=== PATIENT | female | born 1975 | race Caucasian/White ===

== ENCOUNTER 2016-08-01 00:17 | Emergency (ER) | payer OTHER ==
[2016-08-01 00:27] VITALS: RESP 20; TEMP 96.9
[2016-08-01] MEDS ORDERED: DIPHENHYDRAMINE 50 MG/ML SOL IV ONE (00:33)
[2016-08-01] MEDS ORDERED: KETOROLAC TROMETHAMINE 30 MG/ML SOL IV ONE (00:33)
[2016-08-01] MEDS ORDERED: PROCHLORPERAZINE EDISYLATE 5 MG/ML SOL IV ONE (00:33)
[2016-08-01] MEDS ORDERED: KETOROLAC TROMETHAMINE 30 MG/ML SOL ONE (00:43)
[2016-08-01] MEDS ORDERED: PROCHLORPERAZINE EDISYLATE 5 MG/ML SOL ONE (00:44)
[2016-08-01] MEDS ORDERED: DIPHENHYDRAMINE 50 MG/ML SOL ONE (00:44)
[2016-08-01] MEDS: SODIUM CHLORIDE 0.9% FLUSH 10 ML SOL IV PRN ×2 (00:50→00:58)
[2016-08-01] MEDS ORDERED: SODIUM CHLORIDE 0.9% 500 ML 500 ML IV ONE (01:14)
[2016-08-01 01:23] VITALS: O2SAT 97
[2016-08-01 02:03] VITALS: BP 121/70; PULSE 74
== END 2016-08-01 02:24 | disposition home or self-care (01) | DRG 103 ==
LOC: ED 00:17
DX: G43.909 Migraine, unspecified, not intractable, without status migrainosus (principal)
CPT/HCPCS: 99285; J0780; J1200; J1885

== ENCOUNTER 2017-07-06 08:10 | Day surgery (SDC) | payer OTHER ==
[2017-07-06] MEDS ORDERED: PROPOFOL 500 MG/50 ML EMU IV ONE (08:11)
[2017-07-06] MEDS ORDERED: LIDOCAINE HCL 1% MPF SOL ONE (08:11)
[2017-07-06] MEDS ORDERED: ONDANSETRON HCL 4 MG/2 ML SOL ONE (10:03)
[2017-07-06 11:09] VITALS: BP 127/87; PULSE 76; RESP 18; TEMP 97.4; O2SAT 97
== END 2017-07-06 11:37 | disposition home or self-care (01) | DRG 392 ==
LOC: SURG 08:10
PROVIDERS: ATTEND Surgery
DX: R10.32 Left lower quadrant pain (principal); K22.10 Ulcer of esophagus without bleeding; K31.9 Disease of stomach and duodenum, unspecified; K57.30 Diverticulosis of large intestine without perforation or abscess without bleeding; R11.0 Nausea; Z87.19 Personal history of other diseases of the digestive system
CPT/HCPCS: 99001; J2405; J2001; J2704

== ENCOUNTER 2018-04-09 06:44 | Emergency (ER) | payer BC, OTHER ==
[2018-04-09 07:02] VITALS: BP 147/89; PULSE 62; RESP 18; TEMP 97.8; O2SAT 99
[2018-04-09] MEDS ORDERED: KETOROLAC TROMETHAMINE 30 MG/ML SOL IM ONE (07:02)
[2018-04-09] MEDS ORDERED: KETOROLAC TROMETHAMINE 30 MG/ML SOL ONE (07:03)
== END 2018-04-09 07:44 | disposition home or self-care (01) ==
LOC: ED 06:44
DX: G43.909 Migraine, unspecified, not intractable, without status migrainosus (principal)
CPT/HCPCS: 96372; 99282; J1885